=== PATIENT | female | born 1935 | race Asian ===

== ENCOUNTER 2017-05-30 10:35 | Emergency (ER) | payer OTHER ==
[~2017-05-30] VITALS: Ht 144.8 cm; Wt 66.3 kg
[~2017-05-30 10:35] MED LIST: CALC500T62 PO; DSS100 PO; LOSA50TA37 PO; METO-325 PO; MONT10TA21 PO; MULT1TAB PO; VITAD1000 PO
[2017-05-30] MEDS ORDERED: AMLO2.5T PO (10:39)
[2017-05-30] MEDS ORDERED: SODIUM PHOS/SODIUM BIPHOS 133 ML ENEMA PR ONE (11:45)
[2017-05-30] MEDS ORDERED: MAGNESIUM CITRATE 300 ML ORAL SOLUTION PO ONE (11:45)
[2017-05-30 12:25] VITALS: BP 156/88
== END 2017-05-30 12:57 | disposition home or self-care (01) ==
LOC: EMS 10:36
DX: K59.00 Constipation, unspecified (principal); M17.9 Osteoarthritis of knee, unspecified; I10 Essential (primary) hypertension; J45.909 Unspecified asthma, uncomplicated; Z88.0 Allergy status to penicillin
CPT/HCPCS: 99284

== ENCOUNTER 2017-06-21 12:24 | Emergency (ER) | payer OTHER ==
[~2017-06-21] VITALS: Ht 152.4 cm; Wt 68.5 kg
[~2017-06-21 12:24] MED LIST changes: +AMLO2.5T PO
[2017-06-21] MEDS ORDERED: GABA-529 PO (12:37)
[2017-06-21] MEDS ORDERED: BARIUM SULFATE 0.1% SUSPENSION 450 ML BOTTLE PO ONE (12:45)
[2017-06-21 12:58] LABS: BASOPHILS # (AUTO) 0.02 K/uL (0.00-0.20); BASOPHILS % (AUTO) 0.3 % (0.0-2.0); EOSINOPHILS % (AUTO) 0.05 % (1.0-6.0); HEMATOCRIT 39.3 % (36-46); HEMOGLOBIN 13.4 g/dL (12.0-16.0); LYMPHOCYTES # (AUTO) 0.4 K/uL (1.0-4.8); LYMPHOCYTES % (AUTO) 4.9 % (22.0-44.0); MEAN CORPUSCULAR HEMOGLOBIN 35.1 pg (26.0-34.0); MEAN CORPUSCULAR VOLUME 103 fL (80-100); MONOCYTES # (AUTO) 0.3 K/uL (0.1-1.0); MONOCYTES % (AUTO) 3.6 % (2.0-9.0); NEUTROPHILS # (AUTO) 6.7 K/uL (1.8-7.7); PLATELET COUNT (AUTO) 152 K/uL (150-450); RED BLOOD CELL COUNT(AUTO) 3.81 MIL/uL (4.00-5.20); RED CELL DISTRIBUTION WIDTH 13.9 % (11.5-14.5); WHITE BLOOD COUNT (AUTO) 7.4 K/uL (4.5-11.0)
[2017-06-21 12:59] LABS: NEUTROPHILS % (AUTO) 91.3 % (40.0-70.0)
[2017-06-21 13:08] LABS: CALCIUM, TOTAL 10.4 mg/dL (8.8-10.5); CREATININE 0.99 mg/dL (0.60-1.30); POTASSIUM 3.9 mmol/L (3.5-5.1)
[2017-06-21 13:13] LABS: ALBUMIN 4.1 g/dL (3.4-5.0); BILIRUBIN,TOTAL 0.6 mg/dL (0.1-1.0); TOTAL PROTEIN, SERUM 8.2 g/dL (6.4-8.2)
[2017-06-21 13:17] LABS: RBC MORPHOLOGY COMMENT ABNORMAL RBC MORPH
[2017-06-21 13:41] LABS: GLUCOSE, URINE (UA) NEGATIVE (NEGATIVE); KETONES,URINE NEGATIVE (NEGATIVE); LEUKOCYTE ESTERASE ,URINE TRACE (NEGATIVE); OCCULT BLOOD,URINE NEGATIVE (NEGATIVE); PROTEIN,URINE NEGATIVE (NEGATIVE)
[2017-06-21 13:43] LABS: ADD UA MICROSCOPIC YES; APPEARANCE,URINE HAZY (CLEAR)
[2017-06-21 13:53] LABS: HYALINE CASTS, URINE 0-2 /LPF (None Seen); RBC,URINE None Seen /HPF (0-2); SQUAMOUS EPITHELIAL CELL,UR Few /LPF (None Seen); WBC,URINE 0-2 /HPF (0-5)
[2017-06-21] MEDS ORDERED: SODIUM CHLORIDE 0.9% 100 ML ONE (14:30)
[2017-06-21] MEDS ORDERED: IOVERSOL 350 MG/ML 100 ML VIAL ONE (14:30)
[2017-06-21] MEDS ORDERED: MetroNIDAZOLE 500 MG/NACL 100 ML IV ONE (16:00)
[2017-06-21] MEDS ORDERED: SODIUM CHLORIDE 0.9% 500 ML IV ONE (16:00)
[2017-06-21] MEDS ORDERED: CIPROFLOXACIN 400 MG/D5% WATER 200 ML IV ONE (16:00)
[2017-06-21] MEDS ORDERED: ONDANSETRON HCL 4 MG/2 ML VIAL IVP ONE (16:00)
[2017-06-21] MEDS ORDERED: MORPHINE SULFATE 4 MG/ML SYRINGE IVP ONE (16:00)
[2017-06-21 20:21] VITALS: BP 167/81
== END 2017-06-21 20:39 | disposition short-term general hospital (02) ==
LOC: EMS 12:25
DX: K52.9 Noninfective gastroenteritis and colitis, unspecified (principal); I48.91 Unspecified atrial fibrillation; J45.909 Unspecified asthma, uncomplicated; I10 Essential (primary) hypertension; Z88.0 Allergy status to penicillin
CPT/HCPCS: 36415; 74177; 80053; 81001; 83690; 83880; 84484; 85025; 93005; 96365; 96375; 99285; J0744; J2270; J2405; J3490; J7040; J7050; Q9967